=== PATIENT | male | born 1970 | race Caucasian/White ===

== ENCOUNTER 2017-05-11 14:27 | Outpatient (CLI) | payer OTHER ==
[2017-05-11 15:59] LABS: Hemoglobin 15.4 g/dL (14.0-18.0); Mean Corpuscular HGB CONC 33.7 g/dL (32.0-36.0); Mean Corpuscular Hemoglobin 32.2 pg (27.0-31.0); Mean Corpuscular Volume 95.5 fl (80.0-94.0); Mean Platelet Volume 8.4 fL (7.4-10.4); Platelet Count 190 thou/uL (130-400); RBC Distribution Width 12.1 % (11.5-14.5); Red Blood Cell (RBC) Count 4.78 mill/uL (4.70-6.10); White Blood Cell (WBC) Count 8.1 thou/uL (4.8-10.8)
[2017-05-11 16:00] LABS: Bilirubin Negative (Negative); Blood, Urine Negative (Negative); Clarity CLEAR (Clear); Glucose, Urine (Dipstick) Negative (Negative); Leukocyte Negative (Negative); Nitrite Negative (Negative); Protein, Urine (Dipstick) Negative (Neg-Trace); Specific Gravity, Urine 1.036 (1.002-1.036); Urobilinogen 0.2 mg/dL (0.2-1.0)
[2017-05-11 16:03] LABS: Bacteria/HPF None Seen HPF (None Seen); Hyaline Casts/LPF 0-3 HYALINE CAST LPF (0-3 Hyaline); Pathc Cast-AUWi Flag 0.13 (0-2.49); Squamous Epithelial 0-3 HPF (0-3); WBC/HPF 0-3 HPF (0-3)
[2017-05-11 16:16] LABS: Crystals/HPF RARE CA OXALATE HPF (Negative); RBC/HPF None Seen HPF (0-3)
== END 2017-05-11 14:28 | disposition home or self-care (01) ==
LOC: LABBT 14:27
PROVIDERS: ATTEND Orthopaedic Surgery
DX: Z01.812 Encounter for preprocedural laboratory examination (principal); S86.012A Strain of left Achilles tendon, initial encounter
CPT/HCPCS: 81001; 85027

== ENCOUNTER 2017-05-13 09:02 | Day surgery (SDC) | payer OTHER ==
[2017-05-11 15:12] VITALS: BMI 29.2
[2017-05-13] MEDS ORDERED: CEFAZOLIN/Water 2 GM/20 ML SYRINGE ONE (10:16)
[2017-05-13] MEDS ORDERED: Fentanyl 100 MCG/2 ML VIAL ONE ×2 (11:11→13:26)
[2017-05-13] MEDS ORDERED: Ropivacaine 0.5% HCl/PF (150 MG/30 ML VIAL) ONE (11:11)
[2017-05-13] MEDS ORDERED: Midazolam HCl 2 mg/2 ml Vial ONE ×2 (11:11→13:25)
[2017-05-13] MEDS ORDERED: Bupivacaine PF 0.5% 30 ML VIAL ONE (13:25)
[2017-05-13] MEDS ORDERED: Meperidine HCl/PF 25 MG/ML VIAL ONE (15:06)
--- NOTE | 2017-05-13 18:47 | OP ---
DATE OF PROCEDURE: 05/13/2017 PREOPERATIVE DIAGNOSIS: Left Achilles rupture. POSTOPERATIVE DIAGNOSIS: Left Achilles rupture. PROCEDURES PERFORMED: 1. Left Achilles repair. 2. Short leg splint. STAFF: Chandler Liu M.D. GYN PHYSICIAN: Constantine Morton PA-C. ANESTHESIOLOGIST: Dr. Knapp ANESTHESIA: Single shot block by Anesthesia. ESTIMATED BLOOD LOSS: 20 mL. TOURNIQUET TIME: None. IMPLANTS: None. ANTIBIOTICS: Two grams Ancef. COMPLICATIONS: None. HISTORY OF PRESENT ILLNESS: Mr. Mckeon is a 47-year-old male who was loading hay dipti and heard a pop on extending his foot on 05/09/2017 in [place]. The patient had pain localized to his defect. He was sent for the Achilles tear rupture. I discussed with patient the risks and benefits of operative and nonoperative management of the patient's left Achilles. He understood the risks and benefits of procedure to include pain, scar, bleeding, infection, damage to vital structures, decreased range of motion or strength, failure of procedure, damage to life, loss of life or limb. The patient understood it would be improving his strength by reapproximating the edges, understood this and elected to proceed. PROCEDURE NOTE: Time-out was performed designating the patient's left lower extremity as the operative site based on sight, consents, markings of the timeout, the patient's left lower extremity was prepped and draped in sterile fashion. The patient had a posteromedial incision made down through skin. We used blunt dissection proximally to protect the patient's sural nerve. We came down the peritenon which was very flimsy and did not appear repairable. We saw complete transection of the fibers of the tendon. We used #2 FiberWire with locking stitches running proximally and distally for 4 core sutures within the tendon. I then used the Junior needle and passed them proximally and distally and placed the patient in a little plantar flexion and sewed the knots together. We then did a running 0 core stitch that we did at the level of injury placing a suture knot laterally, going medially around back and then sewing back to that suture limb cutting the knots on the anterior aspect of the tendon. We then passed our FiberWire sutures volarly to keep the knots proximally anterior to the tendon and sewed those knots for a second set of core sutures running on the anterior aspect. We washed. We could not close the paratenon. We closed subcutaneous with 2-0 and 3-0 nylon. The patient was placed in a splint postop, to follow up with me in 2 weeks and begin a range of motion of the ankle when placed in a boot. The patient will be sent home with pain medications. HECTOR
== END 2017-05-13 17:23 | disposition home or self-care (01) ==
LOC: SDC 09:02
PROVIDERS: ATTEND Orthopaedic Surgery
PROC: 0LQP0ZZ Repair Left Lower Leg Tendon, Open Approach (ICD-10-PCS; principal; 2017-05-13)
DX: S86.012A Strain of left Achilles tendon, initial encounter (principal); Z98.52 Vasectomy status; Z98.890 Other specified postprocedural states
CPT/HCPCS: J2175; J2250; J2795; J3010; S0020